=== PATIENT | female | born 1995 | race Caucasian/White ===

== ENCOUNTER 2018-10-27 08:35 | Emergency (ER) | payer MEDICAID ==
[2018-10-27] MEDS: Sodium Chloride 0.9% 10 ML Syringe FLUSH PRN ×3 (08:45→13:03)
[2018-10-27] MEDS ORDERED: Ondansetron 4 MG/2 ML SDV IVPUSH ONE ×2 (08:53→10:39)
[2018-10-27] MEDS ORDERED: Sodium Chloride 0.9% 1,000 ML IV ONE (08:54)
[2018-10-27] MEDS ORDERED: Morphine 4 MG/ML Syringe IVPUSH ONE ×2 (08:55→10:39)
[2018-10-27] MEDS ORDERED: Alum Hydroxide/Mag Hydroxide 15 ML, Lidocaine 2% 15 ML PO ONE ×2 (09:08)
--- NOTE | 2018-10-27 10:34 | EDM.PDOC ---
ED HPI GENERAL MEDICAL PROBLEM - General Chief Complaint: Abdominal Pain Stated Complaint: ABD PAIN Time Seen by Provider: 10/27/18 08:40 Source of Information: Reports: Patient - History of Present Illness INITIAL COMMENTS - FREE TEXT/NARRATIVE: Patient is a 22 YO WF who presented to the ED because of N/V/D which started yesterday . The diarrhea is mostly watery,non-bloody with associated cramping pain which got worse this morning. The pain is 10/10, there is no fever or chills or any urinary symptoms.Patient's mom said that she had been having abdominal pain since she had the When her child was born. Abdominal Pain Score (Numeric/FACES): 2 - Related Data Allergies Allergy/AdvReac Type Severity Reaction Status Date / Time Sulfa (Sulfonamide Allergy Hives Verified 10/27/18 09:15 Antibiotics) Home Meds: Home Meds Acetaminophen/oxyCODONE [Percocet 325-5 MG] 1 tab PO Q4H PRN #15 tab 10/27/18 [ Rx] Omeprazole 20 mg PO DAILY 10/27/18 [History] Promethazine [Phenergan] 25 mg PO Q6H PRN #15 tab 10/27/18 [Rx] valACYclovir HCl [valACYclovir] 2 tab PO DAILY PRN 10/27/18 [History] Past Medical History - Past Health History Medical/Surgical History: Denies Medical/Surgical History Gastrointestinal History: Reports: Gastritis, GERD Genitourinary History: Reports: Pyelonephritis, UTI, Recurrent Other Genitourinary History: uti ? 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 Female Surgical History: Reports: Section Other Female Surgeries/Procedures: 07/20/18 emergent Dermatological Surgical History: Reports: Plastic Surgical Reconstruction/Repair Social & Family History - Family History Family Medical History: Noncontributory - Tobacco Use Smoking Status *Q: Never Smoker Second Hand Smoke Exposure: No - Caffeine Use Caffeine Use: Reports: None - Recreational Drug Use Recreational Drug Use: No ED ROS GENERAL - Review of Systems Review Of Systems: See Below Constitutional: Reports: No Symptoms HEENT: Reports: No Symptoms Respiratory: Reports: No Symptoms Cardiovascular: Reports: No Symptoms Endocrine: Reports: No Symptoms GI/Abdominal: Reports: Abdominal Pain, Diarrhea, Nausea, Vomiting : Reports: No Symptoms Musculoskeletal: Reports: No Symptoms Skin: Reports: No Symptoms Neurological: Reports: No Symptoms Psychiatric: Reports: No Symptoms Hematologic/Lymphatic: Reports: No Symptoms Immunologic: Reports: No Symptoms ED EXAM, GI/ABD - Physical Exam Exam: See Below Exam Limited By: No Limitations General Appearance: Alert, No Apparent Distress Ears: Normal External Exam, Normal [place] Nose: Normal Inspection, Normal Mucosa Throat/Mouth: Normal Inspection, Normal Lips Head: Atraumatic, Normocephalic Neck: Normal Inspection Respiratory/Chest: No Respiratory Distress, Lungs Clear, Normal Breath Sounds Cardiovascular: Normal Peripheral Pulses, Regular Rate, Rhythm, No JVD, No Murmur, No Rub GI/Abdominal Exam: Normal Bowel Sounds, Soft, Abnormal Bowel Sounds (tenderness over the epigastric area,LLQ and suprapubic area) (Female) Exam: Deferred Rectal (Female) Exam: Deferred Course - Vital Signs Text/Narrative:: labs reviewed and discussed with patient CT abd/pelvis-see result,ruptured hemorrhagic ovarian cys-Right IVF Zofran 4 mg IV x 2 Morphine 4 mg IV x2 Toradol 30 mg IV x1 BL[employer] consult was done with Dr Strong with [facility] who agreed with the plan of just symptomatic management of pain and follow up as needed. Last Recorded V/S: Last Vital Signs Temp 36.9 C 10/27/18 08:37 Pulse 81 10/27/18 11:30 Resp 15 10/27/18 11:30 BP 130/75 10/27/18 11:30 Pulse Ox 100 10/27/18 11:30 - Orders/Labs/Meds Orders: Active Orders 24 hr Category Date Time Status Abdomen Pelvis w Cont [CT] Stat Exams 10/27/18 09:12 Taken LIPASE, SERUM Stat Lab 10/27/18 09:05 Received Sodium Chloride 0.9% [Saline Flush] Med 10/27/18 08:45 Active 10 ml FLUSH ASDIRECTED PRN Medication Orders Sodium Chloride (Saline Flush) 10 ml FLUSH ASDIRECTED PRN PRN Reason: IV Use Last Admin: 10/27/18 13:03 Dose: 10 ml Admin: 10/27/18 10:49 Dose: 10 ml Admin: 10/27/18 08:45 Dose: 10 ml Labs: Laboratory Tests 10/27/18 10/27/18 10/27/18 Range/Units 09:05 09:05 10:30 WBC 8.1 (4.5-12.0) X10-3/uL RBC 4.85 (3.23-5.20) x10(6)uL Hgb 14.1 (11.5-15.5) g/dL Hct 41.6 (30.0-51.3) % MCV 85.9 (80-96) fL MCH 29.1 (27.7-33.6) pg MCHC 33.9 (32.2-35.4) g/dL RDW 13.2 (11.5-15.5) % Plt Count 314 (125-369) X10(3)uL MPV 8.2 (7.4-10.4) fL Neut % (Auto) 83.2 H (46-82) % Lymph % (Auto) 11.5 L (13-37) % [place] % (Auto) 4.3 (4-12) % Eos % (Auto) 1 (1.0-5.0) % Baso % (Auto) 0 (0-2) % Neut # (Auto) 6.8 (1.6-8.3) # Lymph # (Auto) 0.9 (0.6-5.0) # [place] # (Auto) 0.3 (0.0-1.3) # Eos # (Auto) 0.1 (0.0-0.8) # Baso # (Auto) 0.0 (0.0-0.2) # Sodium 142 (135-145) mmol/L Potassium 4.3 (3.5-5.3) mmol/L Chloride 103 (100-110) mmol/L Carbon Dioxide 27 (21-32) mmol/L BUN 16 D (7-18) mg/dL Creatinine 0.8 (0.55-1.02) mg/dL Est Cr Clr Drug Dosing 79.90 mL/min Estimated GFR (MDRD) > 60 (>60) BUN/Creatinine Ratio 20.0 (9-20) Glucose 104 (80-116) mg/dL Calcium 9.4 (8.6-10.2) mg/dL Total Bilirubin 0.2 (0.1-1.3) mg/dL AST 15 D (5-25) IU/L ALT 19 D (12-36) U/L Alkaline Phosphatase 81 (56-112) IU/L Total Protein 8.3 H (6.0-8.0) g/dL Albumin 3.8 (3.5-5.2) g/dL Globulin 4.5 g/dL Albumin/Globulin Ratio 0.8 Amylase 92 (25-115) U/L Urine Color Yellow (YELLOW) Urine Appearance Clear (CLEAR) Urine pH 7.0 H (5.0-6.5) Ur Specific [place] 1.005 L (1.010-1.025) Urine Protein Negative (NEGATIVE) mg/dL Urine Glucose (UA) Normal (NORMAL) mg/dL Urine Ketones Negative (NEGATIVE) mg/dL Urine Occult Blood Large (NEGATIVE) Urine Nitrite Negative (NEGATIVE) Urine Bilirubin Negative (NEGATIVE) Urine Urobilinogen Normal (NEGATIVE) mg/dL Ur Leukocyte Esterase Negative (NEGATIVE) Urine RBC >100 H (0-5) Urine WBC 0-5 (0-5) Ur Epithelial Cells Few Urine Bacteria Occasional H (NS) Urine HCG, Qual (NEGATIVE) 10/27/18 Range/Units 10:30 WBC (4.5-12.0) X10-3/uL RBC (3.23-5.20) x10(6)uL Hgb (11.5-15.5) g/dL Hct (30.0-51.3) % MCV (80-96) fL MCH (27.7-33.6) pg MCHC (32.2-35.4) g/dL RDW (11.5-15.5) % Plt Count (125-369) X10(3)uL MPV (7.4-10.4) fL Neut % (Auto) (46-82) % Lymph % (Auto) (13-37) % [place] % (Auto) (4-12) % Eos % (Auto) (1.0-5.0) % Baso % (Auto) (0-2) % Neut # (Auto) (1.6-8.3) # Lymph # (Auto) (0.6-5.0) # [place] # (Auto) (0.0-1.3) # Eos # (Auto) (0.0-0.8) # Baso # (Auto) (0.0-0.2) # Sodium (135-145) mmol/L Potassium (3.5-5.3) mmol/L Chloride (100-110) mmol/L Carbon Dioxide (21-32) mmol/L BUN (7-18) mg/dL Creatinine (0.55-1.02) mg/dL Est Cr Clr Drug Dosing mL/min Estimated GFR (MDRD) (>60) BUN/Creatinine Ratio (9-20) Glucose (80-116) mg/dL Calcium (8.6-10.2) mg/dL Total Bilirubin (0.1-1.3) mg/dL AST (5-25) IU/L ALT (12-36) U/L Alkaline Phosphatase (56-112) IU/L Total Protein (6.0-8.0) g/dL Albumin (3.5-5.2) g/dL Globulin g/dL Albumin/Globulin Ratio Amylase (25-115) U/L Urine Color (YELLOW) Urine Appearance (CLEAR) Urine pH (5.0-6.5) Ur Specific [place] (1.010-1.025) Urine Protein (NEGATIVE) mg/dL Urine Glucose (UA) (NORMAL) mg/dL Urine Ketones (NEGATIVE) mg/dL Urine Occult Blood (NEGATIVE) Urine Nitrite (NEGATIVE) Urine Bilirubin (NEGATIVE) Urine Urobilinogen (NEGATIVE) mg/dL Ur Leukocyte Esterase (NEGATIVE) Urine RBC (0-5) Urine WBC (0-5) Ur Epithelial Cells Urine Bacteria (NS) Urine HCG, Qual Negative (NEGATIVE) Meds: Medications Generic Name Dose Route Start Last Admin Trade Name Freq PRN Reason Stop Dose Admin Sodium Chloride 10 ml 10/27/18 08:45 10/27/18 13:03 Saline Flush FLUSH 10 ml ASDIRECTED PRN Administration IV Use Discontinued Medications Generic Name Dose Route Start Last Admin Trade Name Freq PRN Reason Stop Dose Admin Al Hydroxide/Mg Hydroxide 15 0 ml 10/27/18 09:08 10/27/18 09:14 ml/ Lidocaine HCl 15 ml PO 10/27/18 09:09 30 ml ONETIME ONE Administration Diatrizoate Meglum/Diatrizoate Sod 30 ml 10/27/18 10:38 10/27/18 10:52 Gastrografin 37% PO 10/27/18 10:39 30 ml . DIRECTED ONE Administration Sodium Chloride 1,000 mls @ 999 mls/hr 10/27/18 08:54 10/27/18 08:58 Normal Saline IV 10/27/18 09:54 999 mls/hr .BOLUS ONE Administration Iopamidol 75 ml 10/27/18 10:38 10/27/18 10:53 Isovue-370 (76%) IV 10/27/18 10:39 75 ml ASDIRECTED ONE Administration Ketorolac Tromethamine 30 mg 10/27/18 12:59 10/27/18 13:02 Toradol IVPUSH 10/27/18 13:00 30 mg ONETIME ONE Administration Morphine Sulfate 4 mg 10/27/18 08:55 10/27/18 09:07 Morphine IVPUSH 10/27/18 08:56 4 mg ONETIME ONE Administration Morphine Sulfate 4 mg 10/27/18 10:39 10/27/18 10:45 Morphine IVPUSH 10/27/18 10:40 4 mg ONETIME ONE Administration Ondansetron HCl 4 mg 10/27/18 08:53 10/27/18 09:03 Zofran IVPUSH 10/27/18 08:54 4 mg ONETIME ONE Administration Ondansetron HCl 4 mg 10/27/18 10:39 10/27/18 10:44 Zofran IVPUSH 10/27/18 10:40 4 mg ONETIME ONE Administration Departure - Departure Time of Disposition: 13:00 Disposition: Home, Self-Care 01 Condition: Good Clinical Impression: Ovarian bleed, right - Discharge Information Prescriptions: Acetaminophen/oxyCODONE [Percocet 325-5 MG] 1 tab PO Q4H PRN #15 tab PRN Reason: Pain Promethazine [Phenergan] 25 mg PO Q6H PRN #15 tab PRN Reason: Nausea Instructions: Ovarian Cyst, [id number], Ovarian Cyst Referrals: PCP,None [Primary Care Provider] - Forms: ED Department Discharge Additional Instructions: please read discharge instructions on hemorrhagic cyst apply ice or heat whichever makes the pain feel better percocet/oxycodone 5 mg, take 1-2 tablets every 4-6 hours as needed for pain follow up if symptoms persist - My Orders Last 24 Hours: My Active Orders 10/27/18 08:45 Sodium Chloride 0.9% [Saline Flush] 10 ml FLUSH ASDIRECTED PRN 10/27/18 09:05 LIPASE, SERUM Stat 10/27/18 09:12 Abdomen Pelvis w Cont [CT] Stat - Assessment/Plan Last 24 Hours: My Active Orders 10/27/18 08:45 Sodium Chloride 0.9% [Saline Flush] 10 ml FLUSH ASDIRECTED PRN 10/27/18 09:05 LIPASE, SERUM Stat 10/27/18 09:12 Abdomen Pelvis w Cont [CT] Stat
[2018-10-27] MEDS ORDERED: Iopamidol 755 Mg/ML 75 ML Bottle IV ONE (10:38)
[2018-10-27] MEDS ORDERED: Diatrizoate Meglumine/Diatrizoate Sodium 37% 30 ML Bottle PO ONE (10:38)
[2018-10-27] MEDS ORDERED: Ketorolac 30 MG/ML SDV IVPUSH ONE (12:59)
== END 2018-10-27 13:25 | disposition home or self-care (01) ==
LOC: FB.ED 08:35
DX: N83.8 Other noninflammatory disorders of ovary, fallopian tube and broad ligament (principal); K21.9 Gastro-esophageal reflux disease without esophagitis; Z88.2 Allergy status to sulfonamides; Z79.899 Other long term (current) drug therapy
CPT/HCPCS: 36415; 74177; 80053; 81001; 81025; 82150; 83690; 85025; 96361; 96374; 96375; 96376; 99284; A9270; J1885; J2270; J2405; J7030; Q9963; Q9967

== ENCOUNTER 2019-08-20 06:59 | Emergency (ER) | payer MEDICAID ==
[2019-08-20] MEDS ORDERED: Sodium Chloride 0.9% 10 ML Syringe FLUSH PRN (07:16)
[2019-08-20] MEDS ORDERED: Ketorolac 30 MG/ML SDV IVPUSH ONE (07:45)
--- NOTE | 2019-08-20 07:55 | EDM.PDOC ---
ED HPI GENERAL MEDICAL PROBLEM - General Chief Complaint: Abdominal Pain Stated Complaint: ABDOMINAL PAIN Time Seen by Provider: 08/20/19 07:30 Source of Information: Reports: Patient, Old Records History Limitations: Reports: No Limitations - History of Present Illness INITIAL COMMENTS - FREE TEXT/NARRATIVE: Lillian comes into [facility] ED with a 24 hour hx of intermittent lower abdominal pain. Sxs began upon awakening yesterday, L sided and crampy in nature. She did have a formed stool and voided without relief of sxs, which eventually waned during the day. Sxs relapsed in the evening, more midline and periumbilical, with some radiation into the L side of the lower back. She self medicated which seemed to help, and slept thru the night. Sxs relapsed this am, periumbilical, with some radiation into the L side of lower back as previous. She voided and had a small formed stool without BRB or mucous, and no change in sxs. She denies nausea or vomiting, voiding sxs, LMP 3 days ago uneventful and not sexually active. She has taken no meds this am. abdominal Pain Score (Numeric/FACES): 8 - Related Data Allergies Allergy/AdvReac Type Severity Reaction Status Date / Time Sulfa (Sulfonamide Allergy Hives Verified 08/20/19 07:58 Antibiotics) Past Medical History - Past Health History Medical/Surgical History: Denies Medical/Surgical History Gastrointestinal History: Reports: Gastritis, GERD Genitourinary History: Reports: Pyelonephritis, UTI, Recurrent Other Genitourinary History: atrophy of left kidney SHOP TECH History: Reports: , Other (See Below) Other SHOP TECH History: , ovarian cyst rupture - Past Surgical History HEENT Surgical History: Reports: Other (See Below) Other HEENT Surgeries/Procedures: Plastic surgery to the lip after a dog bite. Female Surgical History: Reports: Section Other Female Surgeries/Procedures: 07/20/18 emergent Dermatological Surgical History: Reports: Plastic Surgical Reconstruction/Repair Social & Family History - Family History Family Medical History: Noncontributory - Tobacco Use Smoking Status *Q: Never Smoker - Caffeine Use Caffeine Use: Reports: None - Recreational Drug Use Recreational Drug Use: No ED ROS GENERAL - Review of Systems Review Of Systems: See Below Constitutional: Reports: Decreased Appetite HEENT: Reports: No Symptoms Respiratory: Reports: No Symptoms Cardiovascular: Reports: No Symptoms Endocrine: Reports: No Symptoms GI/Abdominal: Reports: Abdominal Pain, Decreased Appetite : Reports: No Symptoms Musculoskeletal: Reports: Back Pain Skin: Reports: No Symptoms Neurological: Reports: No Symptoms Psychiatric: Reports: No Symptoms Hematologic/Lymphatic: Reports: No Symptoms Immunologic: Reports: No Symptoms ED EXAM, GI/ABD - Physical Exam Exam: See Below Exam Limited By: No Limitations General Appearance: Alert, WD/WN, Mild Distress, Thin Eyes: Bilateral: Normal Appearance, EOMI Ears: Normal External Exam Nose: Normal Inspection Throat/Mouth: Normal Inspection, Normal Lips, Normal Gums, Normal Oropharynx, Normal Voice, No Airway Compromise Head: Normocephalic Neck: Normal Inspection, Supple, Non-Tender, Full Range of Motion Respiratory/Chest: Lungs Clear Cardiovascular: Normal Peripheral Pulses, Regular Rate, Rhythm, No Murmur GI/Abdominal Exam: Normal Bowel Sounds, Soft, No Organomegaly, No Distention, No Mass, Tender (mild tenderness without guarding in the lower abdomen) (Female) Exam: Deferred Rectal (Female) Exam: Deferred Back Exam: Normal Inspection Extremities: Normal Inspection Neurological: Alert, Oriented, CN II-XII Intact, Normal Cognition, Normal Gait, No Motor/Sensory Deficits Psychiatric: Normal Affect, Normal Mood Skin Exam: Warm, Dry, Intact, Normal Color Lymphatic: No Adenopathy Course - Vital Signs Text/Narrative:: Following assessment, an IV was started in the LUE, and Toradol 30 mg IV administered for comfort pending results of testing: CBC and CMP baseline, Lactic acid and CRP also baseline; UA WNL, se HCG neg; Abd-Pelvic CT wo contrast: no diagnostic abnormallity, small L kidney (old). Abdominal pain NOS, I suggested sxs cares, NSAIDs for pain, and follow up with PCP. Last Recorded V/S: Last Vital Signs Temp 36.7 C 08/20/19 07:02 Pulse 74 08/20/19 07:02 Resp 14 08/20/19 07:02 BP 127/93 H 08/20/19 07:02 Pulse Ox 99 08/20/19 07:02 - Orders/Labs/Meds Orders: Active Orders 24 hr Category Date Time Status Abdomen Pelvis wo Cont [CT] Stat Exams 08/20/19 08:03 Taken Sodium Chloride 0.9% [Saline Flush] Med 08/20/19 07:16 Active 10 ml FLUSH ASDIRECTED PRN Peripheral IV Insertion Adult [OM.PC] Routine Oth 08/20/19 07:16 Ordered Medication Orders Sodium Chloride (Saline Flush) 10 ml FLUSH ASDIRECTED PRN PRN Reason: Keep Vein Open Last Admin: 08/20/19 07:52 Dose: 10 ml Documented by: GALDINO Labs: Laboratory Tests 08/20/19 08/20/19 08/20/19 Range/Units 07:20 07:20 07:20 WBC (4.5-12.0) X10-3/uL RBC (3.23-5.20) x10(6)uL Hgb (11.5-15.5) g/dL Hct (30.0-51.3) % MCV (80-96) fL MCH (27.7-33.6) pg MCHC (32.2-35.4) g/dL RDW (11.5-15.5) % Plt Count (125-369) X10(3)uL MPV (7.4-10.4) fL Neut % (Auto) (46-82) % Lymph % (Auto) (13-37) % [place] % (Auto) (4-12) % Eos % (Auto) (1.0-5.0) % Baso % (Auto) (0-2) % Neut # (Auto) (1.6-8.3) # Lymph # (Auto) (0.6-5.0) # [place] # (Auto) (0.0-1.3) # Eos # (Auto) (0.0-0.8) # Baso # (Auto) (0.0-0.2) # Sodium Cancelled Potassium Cancelled Chloride Cancelled Carbon Dioxide Cancelled Anion Gap Cancelled BUN Cancelled Creatinine Cancelled Est Cr Clr Drug Dosing Cancelled Estimated GFR (MDRD) Cancelled BUN/Creatinine Ratio Cancelled Glucose Cancelled Lactic Acid 0.7 (0.4-2.0) mmol/L Calcium Cancelled Total Bilirubin (0.1-1.3) mg/dL AST (5-25) IU/L ALT (12-36) U/L Alkaline Phosphatase (56-112) IU/L C-Reactive Protein < 0.2 L (0.5-0.9) mg/dL Total Protein (6.0-8.0) g/dL Albumin (3.5-5.2) g/dL Globulin g/dL Albumin/Globulin Ratio Urine Color (YELLOW) Urine Appearance (CLEAR) Urine pH (5.0-6.5) Ur Specific [place] (1.010-1.025) Urine Protein (NEGATIVE) mg/dL Urine Glucose (UA) (NORMAL) mg/dL Urine Ketones (NEGATIVE) mg/dL Urine Occult Blood (NEGATIVE) Urine Nitrite (NEGATIVE) Urine Bilirubin (NEGATIVE) Urine Urobilinogen (NEGATIVE) mg/dL Ur Leukocyte Esterase (NEGATIVE) Urine RBC (0-5) Urine WBC (0-5) Ur Squamous Epith Cells (NS,R,O) Urine Bacteria (NS) Urine HCG, Qual (NEGATIVE) 08/20/19 08/20/19 08/20/19 Range/Units 07:20 07:20 07:27 WBC 6.3 (4.5-12.0) X10-3/uL RBC 4.55 (3.23-5.20) x10(6)uL Hgb 13.6 (11.5-15.5) g/dL Hct 42.3 (30.0-51.3) % MCV 92.8 (80-96) fL MCH 29.9 (27.7-33.6) pg MCHC 32.2 (32.2-35.4) g/dL RDW 12.7 (11.5-15.5) % Plt Count 210 (125-369) X10(3)uL MPV 8.2 (7.4-10.4) fL Neut % (Auto) 66.8 (46-82) % Lymph % (Auto) 24.3 (13-37) % [place] % (Auto) 6.7 (4-12) % Eos % (Auto) 2 (1.0-5.0) % Baso % (Auto) 0 (0-2) % Neut # (Auto) 4.3 (1.6-8.3) # Lymph # (Auto) 1.5 (0.6-5.0) # [place] # (Auto) 0.4 (0.0-1.3) # Eos # (Auto) 0.1 (0.0-0.8) # Baso # (Auto) 0.0 (0.0-0.2) # Sodium 140 Potassium 4.0 Chloride 103 Carbon Dioxide 29 Anion Gap BUN 17 Creatinine 0.8 Est Cr Clr Drug Dosing TNP Estimated GFR (MDRD) > 60 BUN/Creatinine Ratio 21.3 H Glucose 104 Lactic Acid (0.4-2.0) mmol/L Calcium 9.3 Total Bilirubin 0.4 (0.1-1.3) mg/dL AST 16 (5-25) IU/L ALT 19 (12-36) U/L Alkaline Phosphatase 64 (56-112) IU/L C-Reactive Protein (0.5-0.9) mg/dL Total Protein 7.7 (6.0-8.0) g/dL Albumin 4.3 (3.5-5.2) g/dL Globulin 3.4 g/dL Albumin/Globulin Ratio 1.3 Urine Color Yellow (YELLOW) Urine Appearance Cloudy (CLEAR) Urine pH 7.0 H (5.0-6.5) Ur Specific [place] 1.015 (1.010-1.025) Urine Protein Negative (NEGATIVE) mg/dL Urine Glucose (UA) Normal (NORMAL) mg/dL Urine Ketones Negative (NEGATIVE) mg/dL Urine Occult Blood Large H (NEGATIVE) Urine Nitrite Negative (NEGATIVE) Urine Bilirubin Negative (NEGATIVE) Urine Urobilinogen Normal (NEGATIVE) mg/dL Ur Leukocyte Esterase Negative (NEGATIVE) Urine RBC 20-30 H (0-5) Urine WBC 0-5 (0-5) Ur Squamous Epith Cells Moderate H (NS,R,O) Urine Bacteria Moderate H (NS) Urine HCG, Qual (NEGATIVE) 08/20/19 Range/Units 07:27 WBC (4.5-12.0) X10-3/uL RBC (3.23-5.20) x10(6)uL Hgb (11.5-15.5) g/dL Hct (30.0-51.3) % MCV (80-96) fL MCH (27.7-33.6) pg MCHC (32.2-35.4) g/dL RDW (11.5-15.5) % Plt Count (125-369) X10(3)uL MPV (7.4-10.4) fL Neut % (Auto) (46-82) % Lymph % (Auto) (13-37) % [place] % (Auto) (4-12) % Eos % (Auto) (1.0-5.0) % Baso % (Auto) (0-2) % Neut # (Auto) (1.6-8.3) # Lymph # (Auto) (0.6-5.0) # [place] # (Auto) (0.0-1.3) # Eos # (Auto) (0.0-0.8) # Baso # (Auto) (0.0-0.2) # Sodium Potassium Chloride Carbon Dioxide Anion Gap BUN Creatinine Est Cr Clr Drug Dosing Estimated GFR (MDRD) BUN/Creatinine Ratio Glucose Lactic Acid (0.4-2.0) mmol/L Calcium Total Bilirubin (0.1-1.3) mg/dL AST (5-25) IU/L ALT (12-36) U/L Alkaline Phosphatase (56-112) IU/L C-Reactive Protein (0.5-0.9) mg/dL Total Protein (6.0-8.0) g/dL Albumin (3.5-5.2) g/dL Globulin g/dL Albumin/Globulin Ratio Urine Color (YELLOW) Urine Appearance (CLEAR) Urine pH (5.0-6.5) Ur Specific [place] (1.010-1.025) Urine Protein (NEGATIVE) mg/dL Urine Glucose (UA) (NORMAL) mg/dL Urine Ketones (NEGATIVE) mg/dL Urine Occult Blood (NEGATIVE) Urine Nitrite (NEGATIVE) Urine Bilirubin (NEGATIVE) Urine Urobilinogen (NEGATIVE) mg/dL Ur Leukocyte Esterase (NEGATIVE) Urine RBC (0-5) Urine WBC (0-5) Ur Squamous Epith Cells (NS,R,O) Urine Bacteria (NS) Urine HCG, Qual Negative (NEGATIVE) Meds: Medications Generic Name Dose Route Start Last Admin Trade Name Freq PRN Reason Stop Dose Admin Sodium Chloride 10 ml 08/20/19 07:16 08/20/19 07:52 Saline Flush FLUSH 10 ml ASDIRECTED PRN Administration Keep Vein Open Discontinued Medications Generic Name Dose Route Start Last Admin Trade Name Freq PRN Reason Stop Dose Admin Ketorolac Tromethamine 30 mg 08/20/19 07:45 08/20/19 07:51 Toradol IVPUSH 08/20/19 07:46 30 mg ONETIME ONE Administration Departure - Departure Time of Disposition: 08:48 Disposition: Home, Self-Care 01 Condition: Fair Clinical Impression: Abdominal pain Qualifiers: Abdominal location: periumbilical Qualified Code(s): R10.33 - Periumbilical pain - Discharge Information *PRESCRIPTION DRUG MONITORING PROGRAM REVIEWED*: Not Applicable *COPY OF PRESCRIPTION DRUG MONITORING REPORT IN PATIENT HAZEL: Not Applicable Referrals: Pamela Sharpe [employer] [Primary Care Provider] - Forms: ED Department Discharge Sepsis Event Note (ED) - Evaluation Sepsis Screening Result: No Definite Risk - Focused Exam Vital Signs: Vital Signs Temp Pulse Resp BP Pulse Ox 08/20/19 07:02 36.7 C 74 14 127/93 H 99 - Problem List & Annotations (1) Abdominal pain SNOMED Code(s): 63065280 Code(s): R10.9 - UNSPECIFIED ABDOMINAL PAIN Status: Acute Current Visit: Yes Annotation/Comment:: Observation, sxs cares with fluids and NSAIDs, and follow up with PCP if relapse of sxs. Qualifiers: Abdominal location: periumbilical Qualified Code(s): R10.33 - Periumbilical pain - Problem List Review Problem List Initiated/Reviewed/Updated: Yes - My Orders Last 24 Hours: My Active Orders 08/20/19 07:16 Sodium Chloride 0.9% [Saline Flush] 10 ml FLUSH ASDIRECTED PRN Peripheral IV Insertion Adult [OM.PC] Routine 08/20/19 08:03 Abdomen Pelvis wo Cont [CT] Stat - Assessment/Plan Last 24 Hours: My Active Orders 08/20/19 07:16 Sodium Chloride 0.9% [Saline Flush] 10 ml FLUSH ASDIRECTED PRN Peripheral IV Insertion Adult [OM.PC] Routine 08/20/19 08:03 Abdomen Pelvis wo Cont [CT] Stat Plan: Follow up with PCP.
== END 2019-08-20 09:00 | disposition home or self-care (01) ==
LOC: FB.ED 06:59
DX: R10.33 Periumbilical pain (principal); Z88.2 Allergy status to sulfonamides
CPT/HCPCS: 36415; 74176; 80053; 81001; 81025; 83605; 85025; 86140; 96374; 99284; J1885

== ENCOUNTER 2020-06-07 06:24 | Emergency (ER) | payer MEDICAID ==
[2020-06-07] MEDS ORDERED: Sodium Chloride 0.9% 10 ML Syringe FLUSH PRN (06:48)
[2020-06-07] MEDS ORDERED: Morphine 2 MG/ML SYRINGE IVPUSH STA (06:49)
[2020-06-07] MEDS ORDERED: Ketorolac 30 MG/ML SDV IVPUSH STA (06:49)
[2020-06-07] MEDS ORDERED: Ondansetron 4 MG/2 ML SDV IVPUSH STA (06:50)
[2020-06-07] MEDS ORDERED: Sodium Chloride 0.9% 1,000 ML IV SCH (07:00)
--- NOTE | 2020-06-07 07:19 | EDM.PDOC ---
<Tom Ontiveros - Last Filed: 06/07/20 07:25> ED HPI GENERAL MEDICAL PROBLEM - General Chief Complaint: Abdominal Pain Stated Complaint: stomach pain Time Seen by Provider: 06/07/20 06:40 Source of Information: Reports: Patient History Limitations: Reports: No Limitations - History of Present Illness INITIAL COMMENTS - FREE TEXT/NARRATIVE: Patient presented to the ED because of abdominal pain which started at about 11 pm last night and got worse at 0400 thia morning. The pain is sharp over the RLQ and periumbilical and suprapubic area. There is nausea but no vomiting or diarrhrea. She has a history of chronic constipatioThere is no fever, chills, or urinary symptoms.n and was seen in the ED a couple of times. Bilateral Middle Abdominal Pain Score (Numeric/FACES): 7 - Related Data Allergies Allergy/AdvReac Type Severity Reaction Status Date / Time Sulfa (Sulfonamide Allergy Hives Verified 06/07/20 06:33 Antibiotics) Home Meds: Home Meds Sennosides/Docusate Sodium [Senna-S] 2 each PO DAILY PRN #30 tablet 06/07/20 [Rx] polyethylene glycoL 3350 [MiraLAX] 34 gm PO DAILY PRN #10 packet 06/07/20 [Rx] Past Medical History - Past Health History Medical/Surgical History: Denies Medical/Surgical History Gastrointestinal History: Reports: Gastritis, GERD, Other (See Below) Other Gastrointestinal History: constipation Genitourinary History: Reports: Pyelonephritis, UTI, Recurrent Other Genitourinary History: atrophy of left kidney [employer] OF [employer] History: Reports: , Other (See Below) Other [employer] History: , ovarian cyst rupture - Past Surgical History HEENT Surgical History: Reports: Other (See Below) Other HEENT Surgeries/Procedures: Plastic surgery to the lip after a dog bite. Female Surgical History: Reports: Section Other Female Surgeries/Procedures: 07/20/18 emergent Dermatological Surgical History: Reports: Plastic Surgical Reconstruction/Repair Social & Family History - Family History Family Medical History: No Pertinent Family History - Tobacco Use Tobacco Use Status *Q: Never Tobacco User - Caffeine Use Caffeine Use: Reports: None - Recreational Drug Use Recreational Drug Use: No ED ROS GENERAL - Review of Systems Review Of Systems: See Below Constitutional: Reports: No Symptoms HEENT: Reports: No Symptoms Respiratory: Reports: No Symptoms Cardiovascular: Reports: No Symptoms Endocrine: Reports: No Symptoms GI/Abdominal: Reports: Abdominal Pain, Constipation, Nausea Musculoskeletal: Reports: No Symptoms Skin: Reports: No Symptoms Neurological: Reports: No Symptoms Psychiatric: Reports: No Symptoms ED EXAM, GI/ABD - Physical Exam Exam: See Below Exam Limited By: No Limitations General Appearance: Alert, No Apparent Distress Ears: Normal External Exam, Normal Canal Nose: Normal Inspection, Normal Mucosa Throat/Mouth: Normal Inspection, Normal Lips Head: Atraumatic, Normocephalic Neck: Normal Inspection, Supple, Non-Tender, Full Range of Motion Respiratory/Chest: No Respiratory Distress, Lungs Clear, Normal Breath Sounds Cardiovascular: Normal Peripheral Pulses, Regular Rate, Rhythm, No Edema, No Gallop GI/Abdominal Exam: Normal Bowel Sounds, Soft, No Organomegaly, Other (tenderness over the RLQ,periumbilical area, suprapubic area) Extremities: Normal Inspection, Normal Range of Motion, Non-Tender, No Pedal Edema, Normal Capillary Refill Neurological: Alert, Oriented, CN II-XII Intact Psychiatric: Normal Affect Course - Vital Signs Text/Narrative:: Labs/Abd CT-pending NS 1 L bolus Zofran 4 mg IV x1 Morphine 2 IV x1 Toradol 30 mg IV x1 See Dr Lea' note on discharge planning Departure - Departure Time of Disposition: 19:30 Disposition: Home, Self-Care 01 Condition: Good Clinical Impression: Constipation, Ovarian cyst - Discharge Information Prescriptions: polyethylene glycoL 3350 [MiraLAX] 34 gm PO DAILY PRN #10 packet PRN Reason: Constipation Sennosides/Docusate Sodium [Senna-S] 2 each PO DAILY PRN #30 tablet PRN Reason: Constipation Instructions: Chronic Constipation Referrals: PCP,None [Primary Care Provider] - Forms: ED Department Discharge Additional Instructions: Please read discharge instructions on constipation Increase oral fluids Miralax,dissolve 2 packets in 1 glass of water and drink the entire solution Senna S, take 2 tablets one time with the miralax solution Take 2 bottles of magnesium citrate(over the counter at [facility]) Sepsis Event Note (ED) - Evaluation Sepsis Screening Result: No Definite Risk <Teresa Lea - Last Filed: 06/07/20 09:12> Course - Vital Signs Last Recorded V/S: Last Vital Signs Temp 36.6 C 06/07/20 06:34 Pulse 75 06/07/20 07:33 Resp 18 06/07/20 07:33 BP 109/64 06/07/20 07:33 Pulse Ox 100 06/07/20 07:33 - Orders/Labs/Meds Orders: Active Orders 24 hr Category Date Time Status Abdomen Pelvis w Cont [CT] Stat Exams 06/07/20 07:27 Taken Pelvis Non OB Ltd [US] Stat Exams 06/07/20 09:07 Ordered Sodium Chloride 0.9% [Normal Saline] 1,000 ml Med 06/07/20 07:00 Active IV ASDIRECTED Sodium Chloride 0.9% [Saline Flush] Med 06/07/20 06:48 Active 10 ml FLUSH ASDIRECTED PRN Saline Lock Insert [OM.PC] Routine Oth 06/07/20 06:48 Ordered Medication Orders Sodium Chloride (Normal Saline) 1,000 mls @ 999 mls/hr IV ASDIRECTED GERARDO Last Admin: 06/07/20 06:55 Dose: 999 mls/hr Documented by: ANJEL Sodium Chloride (Sodium Chloride 0.9% 10 Ml Syringe) 10 ml FLUSH ASDIRECTED PRN PRN Reason: Keep Vein Open Labs: Laboratory Tests 06/07/20 06/07/20 06/07/20 Range/Units 07:00 07:00 07:00 WBC 5.5 (3.0-10.3) x10-3/uL RBC 4.46 (3.60-5.20) x10(6)uL Hgb 14.2 (11.4-15.5) g/dL Hct 41.8 (34.2-48.2) % MCV 93.8 (76.7-100.5) fL MCH 31.9 (23.9-33.9) pg MCHC 34.0 (31.9-34.8) g/dL RDW 12.5 (12.3-16.5) % Plt Count 157 (151-488) x10(3)uL MPV 9.0 (7.1-12.4) fL Neut % (Auto) 59.5 (30.8-76.2) % Lymph % (Auto) 30.0 (18.4-52.1) % Ha[place] % (Auto) 7.1 (4.4-15.7) % Eos % (Auto) 2.6 (0.6-8.1) % Baso % (Auto) 0.8 (0.2-1.5) % Neut # (Auto) 3.3 (1.5-6.3) x10-3/uL Lymph # (Auto) 1.7 (1.0-4.4) x10-3/uL Haakon # (Auto) 0.4 (0.3-1.0) x10-3/uL Eos # (Auto) 0.1 (0.0-0.8) x10-3/uL Baso # (Auto) 0.0 (0.0-0.1) x10-3/uL Sodium 140 (135-145) mmol/L Potassium 3.9 (3.5-5.3) mmol/L Chloride 102 (100-110) mmol/L Carbon Dioxide 26 (21-32) mmol/L BUN 15 (7-18) mg/dL Creatinine 0.8 (0.55-1.02) mg/dL Est Cr Clr Drug Dosing TNP Estimated GFR (MDRD) > 60 (>60) BUN/Creatinine Ratio 18.8 (9-20) Glucose 102 (80-116) mg/dL Calcium 8.4 L (8.6-10.2) mg/dL Total Bilirubin 0.5 (0.1-1.3) mg/dL AST 17 (5-25) IU/L ALT 22 D (12-36) U/L Alkaline Phosphatase 46 L (56-112) IU/L Total Protein 7.1 (6.0-8.0) g/dL Albumin 3.9 (3.5-5.2) g/dL Globulin 3.2 g/dL Albumin/Globulin Ratio 1.2 Amylase 100 (25-115) U/L Lipase 87 (73-393) U/L Urine Color (YELLOW) Urine Appearance (CLEAR) Urine pH (5.0-6.5) Ur Specific [place] (1.010-1.025) Urine Protein (NEGATIVE) mg/dL Urine Glucose (UA) (NORMAL) mg/dL Urine Ketones (NEGATIVE) mg/dL Urine Occult Blood (NEGATIVE) Urine Nitrite (NEGATIVE) Urine Bilirubin (NEGATIVE) Urine Urobilinogen (NEGATIVE) mg/dL Ur Leukocyte Esterase (NEGATIVE) Urine WBC (0-5) Ur Squamous Epith Cells (NS,R,O) Urine Bacteria (NS) Urine HCG, Qual (NEGATIVE) 06/07/20 06/07/20 Range/Units 07:05 07:05 WBC (3.0-10.3) x10-3/uL RBC (3.60-5.20) x10(6)uL Hgb (11.4-15.5) g/dL Hct (34.2-48.2) % MCV (76.7-100.5) fL MCH (23.9-33.9) pg MCHC (31.9-34.8) g/dL RDW (12.3-16.5) % Plt Count (151-488) x10(3)uL MPV (7.1-12.4) fL Neut % (Auto) (30.8-76.2) % Lymph % (Auto) (18.4-52.1) % Haak[place] % (Auto) (4.4-15.7) % Eos % (Auto) (0.6-8.1) % Baso % (Auto) (0.2-1.5) % Neut # (Auto) (1.5-6.3) x10-3/uL Lymph # (Auto) (1.0-4.4) x10-3/uL [place] # (Auto) (0.3-1.0) x10-3/uL Eos # (Auto) (0.0-0.8) x10-3/uL Baso # (Auto) (0.0-0.1) x10-3/uL Sodium (135-145) mmol/L Potassium (3.5-5.3) mmol/L Chloride (100-110) mmol/L Carbon Dioxide (21-32) mmol/L BUN (7-18) mg/dL Creatinine (0.55-1.02) mg/dL Est Cr Clr Drug Dosing Estimated GFR (MDRD) (>60) BUN/Creatinine Ratio (9-20) Glucose (80-116) mg/dL Calcium (8.6-10.2) mg/dL Total Bilirubin (0.1-1.3) mg/dL AST (5-25) IU/L ALT (12-36) U/L Alkaline Phosphatase (56-112) IU/L Total Protein (6.0-8.0) g/dL Albumin (3.5-5.2) g/dL Globulin g/dL Albumin/Globulin Ratio Amylase (25-115) U/L Lipase (73-393) U/L Urine Color Yellow (YELLOW) Urine Appearance Slightly cloudy (CLEAR) Urine pH 6.5 (5.0-6.5) Ur Specific [place] 1.015 (1.010-1.025) Urine Protein Negative (NEGATIVE) mg/dL Urine Glucose (UA) Normal (NORMAL) mg/dL Urine Ketones Negative (NEGATIVE) mg/dL Urine Occult Blood Negative (NEGATIVE) Urine Nitrite Negative (NEGATIVE) Urine Bilirubin Negative (NEGATIVE) Urine Urobilinogen Normal (NEGATIVE) mg/dL Ur Leukocyte Esterase Negative (NEGATIVE) Urine WBC 0-5 (0-5) Ur Squamous Epith Cells Few H (NS,R,O) Urine Bacteria Few H (NS) Urine HCG, Qual Negative (NEGATIVE) Meds: Medications Generic Name Dose Route Start Last Admin Trade Name Luis Enrique PRN Reason Stop Dose Admin Sodium Chloride 1,000 mls @ 999 mls/hr 06/07/20 07:00 06/07/20 06:55 Normal Saline IV 999 mls/hr ASDIRECTED GERARDO Administration Sodium Chloride 10 ml 06/07/20 06:48 Sodium Chloride 0.9% 10 Ml Syringe FLUSH ASDIRECTED PRN Keep Vein Open Discontinued Medications Generic Name Dose Route Start Last Admin Trade Name Luis Enrique PRN Reason Stop Dose Admin Iopamidol 70 ml 06/07/20 07:48 06/07/20 07:57 Iopamidol 755 Mg/Ml 75 Ml Bottle IV 06/07/20 07:49 70 ml ONETIME ONE Administration Ketorolac Tromethamine 30 mg 06/07/20 06:49 06/07/20 06:56 Ketorolac 30 Mg/Ml Sdv IVPUSH 06/07/20 06:50 30 mg NOW STA Administration Morphine Sulfate 2 mg 06/07/20 06:49 06/07/20 06:58 Morphine 2 Mg/Ml Syringe IVPUSH 06/07/20 06:50 2 mg NOW STA Administration Ondansetron HCl 4 mg 06/07/20 06:50 06/07/20 06:55 Ondansetron 4 Mg/2 Ml Sdv IVPUSH 06/07/20 06:51 4 mg NOW STA Administration - Radiology Interpretation CT Results Date: 06/07/20 - Re-Assessments/Exams Free Text/Narrative Re-Assessment/Exam: 06/07/20 09:09 CT abd and pelvis shows a large Ovarian cyst :4.3 X 4.3 cm. Ultrasound recommend. Ultrasound ordered . Pt will return to get this done as an out patient ( per her request) Discussed same in detail with her Departure - Discharge Information *PRESCRIPTION DRUG MONITORING PROGRAM REVIEWED*: Not Applicable *COPY OF PRESCRIPTION DRUG MONITORING REPORT IN PATIENT [facility]ZEL: Not Applicable Sepsis Event Note (ED) - Focused Exam Vital Signs: Vital Signs Temp Pulse Resp BP Pulse Ox 06/07/20 07:33 75 18 109/64 100 06/07/20 06:34 36.6 C 56 L 18 131/79 94 L - My Orders Last 24 Hours: My Active Orders 06/07/20 09:07 Pelvis Non OB Ltd [US] Stat - Assessment/Plan Last 24 Hours: My Active Orders 06/07/20 09:07 Pelvis Non OB Ltd [US] Stat
[2020-06-07] MEDS ORDERED: Iopamidol 755 Mg/ML 75 ML Bottle IV ONE (07:48)
== END 2020-06-07 09:19 | disposition home or self-care (01) ==
LOC: FB.ED 06:24
DX: N83.201 Unspecified ovarian cyst, right side (principal); Z88.2 Allergy status to sulfonamides
CPT/HCPCS: 36415; 74177; 80053; 81001; 81025; 82150; 83690; 85025; 96374; 96375; 99284-25; J1885; J2270; J2405; J7030; Q9967